=== PATIENT | male | born 2000 | race Asian ===

== ENCOUNTER 2019-12-14 03:01 | Emergency (ER) | payer BC ==
[~2019-12-14] VITALS: Ht 175.3 cm; Wt 73.0 kg
[2019-12-14 03:15] VITALS: BP_SYST 113
[2019-12-14 04:00] VITALS: BP_SYST 116
== END 2019-12-14 06:15 | disposition home or self-care (01) ==
LOC: SED 03:01
DX: H61.22 Impacted cerumen, left ear (principal); H69.82 Other specified disorders of Eustachian tube, left ear
CPT/HCPCS: 99284

== ENCOUNTER 2019-12-15 05:13 | Emergency (ER) | payer BC ==
[~2019-12-15] VITALS: Ht 175.3 cm; Wt 72.6 kg
[2019-12-15 05:18] VITALS: BP_SYST 138
[2019-12-15] MEDS ORDERED: POTASSIUM CHLORIDE 20 MEQ TAB.PRT.SR PO ONE (05:30)
[2019-12-15 05:55] VITALS: BP_SYST 130
== END 2019-12-15 05:55 | disposition home or self-care (01) ==
LOC: SED 05:13
DX: H61.23 Impacted cerumen, bilateral (principal); H65.92 Unspecified nonsuppurative otitis media, left ear
CPT/HCPCS: 99283

== ENCOUNTER → 2022-06-25 | Emergency (ER) | payer BC ==
[~2022-06-25] VITALS: Ht 175.3 cm; Wt 72.6 kg
[2022-06-25 14:52] VITALS: BP_SYST 131
--- NOTE | 2022-06-25 14:58 | NUR ---
BIBS WITH [facility] WHEN HE FELL OFF AND STEPPED ON SOME ROCKS AND HAD SUPERFICIAL CUT ON PLANTAR SURFACE OF RIGHT FOOT. PT ALSO HAS SMALL ABRASION TO LEFT HAND. PLAC[facility]. WILL UPDATE DR. SALDANA.
== END | disposition left against medical advice (07) ==
LOC: SED 14:41
DX: Z48.00 Encounter for change or removal of nonsurgical wound dressing (principal); Z53.21 Procedure and treatment not carried out due to patient leaving prior to being seen by health care provider

== ENCOUNTER 2022-08-07 18:30 | Emergency (ER) | payer BC ==
[~2022-08-07] VITALS: Ht 172.7 cm; Wt 72.6 kg
[2022-08-07 19:27] VITALS: BP_SYST 127
--- NOTE | 2022-08-07 19:30 | NUR ---
PATIENT SLAMMED RIGHT THUMB IN CAR DOOR LAST NIGHT AND STATES HE IS IN PAIN. NO ACTIVE BLEEDING, OLD TRAUMA NOTED TO THUMB BY BLOOD BLISTER NOTED UNDER NAILBED.
--- NOTE | 2022-08-07 20:10 | NUR ---
PATIENT ELOPED Addendum: 08/07/22 at 4 by [id number] PATIENT LEFT WITHOUT BEING SEEN. DR. PETIT ATTEMPTED TO GO OUT AND SEE PATIENT AND PATIENT WAS GONE.
== END 2022-08-07 20:10 | disposition left against medical advice (07) ==
LOC: SED 18:30
DX: M79.644 Pain in right finger(s) (principal); R09.81 Nasal congestion; Z53.21 Procedure and treatment not carried out due to patient leaving prior to being seen by health care provider